=== PATIENT | male | born 1950 | race Caucasian/White ===

== ENCOUNTER 2019-02-18 05:00 | Day surgery (SDC) | payer OTHER ==
[~2019-02-18 05:00] MED LIST: INTESTINEX1 CA1 PO; Levsin/Sl 0.125 MG TAB.SUBL SL; OXYC1TAB9 PO
== END 2019-02-18 09:10 | disposition home or self-care (01) ==
LOC: AMB-ENDOS 05:00
DX: K57.30 Diverticulosis of large intestine without perforation or abscess without bleeding (principal); K64.8 Other hemorrhoids